=== PATIENT | female | born 1990 | race African-American/Black ===

== ENCOUNTER 2022-02-02 15:39 | Emergency (ER) | payer MEDICAID ==
[~2022-02-02] VITALS: Ht 160 cm; Wt 58.0 kg
[2022-02-02 15:46] VITALS: BP 137/96
[2022-02-02] MEDS ORDERED: IBUPROFEN 400MG TABLET PO ONE (16:45)
[2022-02-02] MEDS ORDERED: ACETAMINOPHEN 325MG TABLET PO ONE (16:45)
[2022-02-02] MEDS ORDERED: SODIUM CHLORIDE 0.9% 1,000 ML IV ONE (16:45)
[2022-02-02] MEDS ORDERED: AMOXICILLIN/POTASSIUM CLAVULANATE 875/125MG TAB PO ONE (16:45)
[2022-02-02 17:00] LABS: CLARITY URINE CLOUDY (CLEAR); COLOR URINE YELLOW (YELLOW); KETONES URINE 4+ (NEGATIVE); LEUKOCYTE ESTERASE URINE TRACE (NEGATIVE); NITRITE URINE NEGATIVE (NEGATIVE); OCCULT BLOOD URINE 2+ (NEGATIVE); PROTEIN URINE 2+ (NEGATIVE); SPECIFIC GRAVITY URINE 1.031 (1.005-1.030)
[2022-02-02] MEDS ORDERED: KETOROLAC 15MG/ML VIAL IV ONE (18:15)
[2022-02-02] MEDS ORDERED: METR-167 MT (21:09)
[2022-02-02] MEDS ORDERED: AMOX-424 MT (21:09)
[2022-02-02] MEDS ORDERED: IOHEXOL-300 100 ML BOTTLE ONE (21:14)
[2022-02-02] MEDS ORDERED: ONDANSETRON HCL 4MG TABLET PO ONE (21:15)
[2022-02-02] MEDS ORDERED: ONDA4TAB5 PO (22:08)
== END 2022-02-02 22:21 | disposition home or self-care (01) ==
LOC: ER 16:19
DX: J02.9 Acute pharyngitis, unspecified (principal); N39.0 Urinary tract infection, site not specified; N76.0 Acute vaginitis; J35.1 Hypertrophy of tonsils; H92.09 Otalgia, unspecified ear; R51.9 Headache, unspecified
CPT/HCPCS: 70360; 70491; 81003; 81025; 93005; 96361; 96374; 99285; J1885; J7030; Q0162; Q9967

== ENCOUNTER 2024-06-19 21:07 | Emergency (ER) | payer MEDICAID, OTHER ==
[~2024-06-19] VITALS: Ht 162.6 cm; Wt 62.3 kg
[~2024-06-19 21:07] MED LIST: AMOX-424 MT; METR-167 MT; ONDA4TAB5 PO
[2024-06-19 21:25] VITALS: BP 130/46; PULSE 80; RESP 18; TEMP 98.5; O2SAT 100
[2024-06-19 23:06] LABS: BASOPHILS % 0.8 % (0.0-2.0); EOSINOPHILS % 2.6 % (0.0-5.0); HEMATOCRIT. 36.9 % (36.0-48.0); HEMOGLOBIN. 12.2 g/dL (12.0-16.0); LYMPHOCYTES % 44.8 % (20.0-50.0); MEAN CORPUSCULAR HEMOGLOBIN 28.2 pg (28.0-32.0); MEAN CORPUSCULAR VOLUME 85.4 fL (81.0-99.0); MEAN PLATELET VOLUME 8.3 fl (7.4-10.4); MONOCYTES % 4.6 % (2.0-8.0); NEUTROPHILS % 47.2 % (40.0-76.0); PLATELET 307 x1000/uL (130-400); RED BLOOD CELL COUNT 4.33 mill/uL (4.2-5.4); RED CELL DISTRIBUTION WIDTH 14.7 % (11.6-14.6); WHITE BLOOD COUNT 8.4 x1000/uL (4.5-11.0)
[2024-06-19 23:14] LABS: CHLORIDE 103 mEq/L (98-107); POTASSIUM 3.7 mEq/L (3.5-5.1); SODIUM 138 mEq/L (136-145)
[2024-06-19 23:15] LABS: CALCIUM 10.6 mg/dL (8.7-10.4); CARBON DIOXIDE 28 mEq/L (21-32)
[2024-06-19] MEDS: ACETAMINOPHEN 325MG TABLET PO ONE (23:18)
[2024-06-19 23:20] LABS: CREATININE 0.7 mg/dL (0.6-1.0); GLUCOSE 119 mg/dL (70-105); HCG SCREEN NEGATIVE; UREA NITROGEN BLOOD 8 mg/dL (9-23)
[2024-06-19 23:38] LABS: TROPONIN I HIGH SENSITIVITY < 4 ng/L (3.0-34)
== END 2024-06-19 22:55 | disposition left against medical advice (07) ==
LOC: ER 21:07
DX: R07.89 Other chest pain (principal); Z98.890 Other specified postprocedural states
CPT/HCPCS: 36415; 80048; 81025; 84484; 84703; 85025; 93005; 99284